=== PATIENT | male | born 1965 ===

== ENCOUNTER 2018-10-25 08:11 | Day surgery (SDC) | payer OTHER ==
[~2018-10-25 08:11] MED LIST: Buffered Lidocaine 1% SYRIN* 1 ML/SYRINGE INTRADERM ONE; Lactated Ringers 1000 ML Bag* 1,000 ML IV SCH
[2018-10-25] MEDS ORDERED: Naloxone* 0.4 MG/ML 1 ML VIAL IV PRN (09:09)
[2018-10-25] MEDS ORDERED: Levalbuterol 0.63MG/3ML NEB* UNIT OF USE INH PRN (09:09)
[2018-10-25] MEDS ORDERED: DiMENhydriNATE IV* 50 MG/ML VIAL IV PUSH PRN (09:09)
[2018-10-25] MEDS ORDERED: PROCHLORPERAZINE INJ 5 MG/ML 2 ML VIAL IV PRN (09:09)
[2018-10-25] MEDS ORDERED: Acetaminophen TAB* 325 MG PO PRN (09:09)
[2018-10-25] MEDS ORDERED: Midazolam* 1 MG/ML 2 ML VIAL (2 MG) ONE (09:15)
[2018-10-25] MEDS ORDERED: Bupivacaine 0.25% SDV PF* 10 ML VIAL INJ ONE (09:39)
[2018-10-25] MEDS ORDERED: Propofol* 10 MG/ML 20 ML BTL ONE (09:47)
[2018-10-25] MEDS ORDERED: Ketorolac INJ* 30 MG/ML 1 ML VIAL ONE (09:47)
[2018-10-25] MEDS ORDERED: Lidocaine 2% PF * 5 ML VIAL ONE (09:47)
[2018-10-25] MEDS ORDERED: ceFAZolin 2 GM PREMIX in ORs 2 GM/50 ML BAG IVPB ONE (10:05)
[2018-10-25 10:41] VITALS: BP 125/76
--- NOTE | 2018-10-25 20:52 | OP ---
DATE OF OPERATION: 10/25/18 [facility] DATE OF : 69 SURGEON: Quincy Valdez MD SOCIAL SCIENCES RESEARCH SCIENTIST: KVNG Li ANESTHESIOLOGIST: Dr. Rooj. ANESTHESIA: Local MAC. PRE-OP DIAGNOSIS: Right small trigger finger. POST-OP DIAGNOSIS: Right small trigger finger. OPERATIVE PROCEDURE: Right small trigger finger release at A1 whit. INDICATIONS: Jl has the trigger finger. It is chronic. We talked about risks and benefits. He wanted to proceed. ESTIMATED BLOOD LOSS: 1 mL. COMPLICATIONS: None. FINDINGS: See above and below. DESCRIPTION OF PROCEDURE: Jl was seen in the preoperative holding area. The correct site, side, and procedure were identified. We came back to the operating room. The area was anesthetized with 0.25% plain Marcaine. The arm was then prepped and draped in the usual fashion and a time-out was performed. The arm was exsanguinated with the Esmarch and the tourniquet was inflated to 250 mmHg. I made a 1 cm longitudinal incision over the A1 whit of the right small finger. Full-thickness flaps were bluntly raised off of the flexor tendon sheath. The tendon sheath was released along the radial third longitudinally with the 15 blade. The release was completed distally and proximally with the tenotomy scissors. Once everything was nicely released, I had him flex and extend, open and close the hand, and it did not trigger. The wound was irrigated out and closed with 4-0 nylon suture. Soft dressings were applied. The patient was taken to the recovery room in stable condition. [id number]/[facility] #: [id number] [facility]
== END 2018-10-25 11:10 | disposition home or self-care (01) ==
LOC: OREAST 08:11
PROVIDERS: ATTEND Orthopaedic Surgery Hand Surgery
DX: M65.351 Trigger finger, right little finger (principal); I10 Essential (primary) hypertension; E78.00 Pure hypercholesterolemia, unspecified; M19.90 Unspecified osteoarthritis, unspecified site; E10.9 Type 1 diabetes mellitus without complications; F17.210 Nicotine dependence, cigarettes, uncomplicated
CPT/HCPCS: J0690; J1885; J2250; J2704; J3490